=== PATIENT | male | born 1965 | race Caucasian/White ===

== ENCOUNTER 2018-12-10 21:17 | Inpatient (IN) | payer MEDICARE, MEDICAID ==
[~2018-12-10] VITALS: Ht 193 cm; Wt 99.8 kg
--- NOTE | 2018-12-10 21:34 | NUR ---
[facility] FOR ALCOHOL WITHDRAWAL, C/O LOWER BACK, BLE PAIN. PLACED ON 5150 TODAY FOR DTS, PLAN TO HANG HIMSELF. PT APPEARS AGITATED, AMBULATORY, VSS, RR EVEN AND UNLABORED ON RA. PLACED ON MONITOR, READY FOR EVAL.
--- NOTE | 2018-12-10 21:42 | NUR ---
PT REFUSES BLOOD DRAW. MD AWARE
--- NOTE | 2018-12-10 21:51 | NUR ---
ADMIT TO 214-B GPS
[2018-12-10] MEDS ORDERED: LORAZEPAM 1 MG TABLET ONE (21:56)
[2018-12-10] MEDS ORDERED: LORAZEPAM 1 MG TABLET PO ONE (22:00)
--- NOTE | 2018-12-10 23:12 | NUR ---
STEM ROLLER OR CRUSHER OPERATOR AT BEDSIDE FOR BLOOD DRAW.
[2018-12-10 23:22] LABS: BASOPHILS % (AUTO) 0.7 % (0.0-2.0); EOSINOPHILS % (AUTO) 2.4 % (0.0-6.0); HEMATOCRIT 40 % (39-51); HEMOGLOBIN 13.6 g/dL (13.5-17.5); LYMPHOCYTES # (AUTO) 2.9 /CMM (0.8-4.8); LYMPHOCYTES % (AUTO) 38.9 % (20.0-44.0); MEAN CORPUSCULAR HGB CONC 34 g/dl (31.0-36.0); MEAN CORPUSCULAR VOLUME 90 fL (80-96); MONOCYTES # (AUTO) 0.7 /CMM (0.1-1.30); NEUTROPHILS # (AUTO) 3.7 /CMM (1.8-8.9); PLATELET COUNT (AUTO) 370 /CMM (150-450); RED BLOOD CELL COUNT(AUTO) 4.45 MIL/uL (4.5-6.0); WHITE BLOOD COUNT (AUTO) 7.5 K/uL (4.3-11.0)
[2018-12-10 23:28] LABS: CALCIUM, SERUM 8.7 mg/dL (8.5-10.1); CARBON DIOXIDE 25 mmol/L (21-32); CHLORIDE 102 mmol/L (98-107); CREATININE 1.1 mg/dL (0.6-1.3); GLUCOSE 85 mg/dL (74-106); POTASSIUM 3.8 mmol/L (3.5-5.1); SODIUM SERUM 137 mmol/L (136-145); UREA NITROGEN, BLOOD 20 mg/dL (7-18)
[2018-12-10 23:41] LABS: ACETAMINOPHEN 2 ug/ml (10-30); ALANINE AMINOTRANSFERASE 19 U/L (12-78); ALBUMIN 3.5 g/dL (3.4-5.0); ALCOHOL, BLOOD < 3 mg/dL (0-0); ALKALINE PHOSPHATASE 61 U/L (46-116); ASPARTATE AMINOTRANSFERASE 14 U/L (15-37); BILIRUBIN,DIRECT 0.1 mg/dL (0.0-0.2); BILIRUBIN,TOTAL 0.4 mg/dL (0.2-1.0); TOTAL PROTEIN, SERUM 6.9 g/dL (6.4-8.2)
[2018-12-10 23:46] LABS: SALICYLATE 1.7 mg/dL (2.8-20.0)
[2018-12-10] MEDS ORDERED: TEMA15CA PO (23:55)
[2018-12-10] MEDS ORDERED: LORA1TAB PO (23:55)
[2018-12-10] MEDS ORDERED: LURA40TA PO (23:55)
[2018-12-10] MEDS ORDERED: TRAZ-182 PO (23:59)
[2018-12-10] MEDS ORDERED: ZIPR20CA2 PO (23:59)
--- NOTE | 2018-12-11 00:30 | NUR ---
ADMITTED THIS 53 YEARS OLD MALE FROM [facility] , PATIENT WAS PLACED ON 5150 HOLD DUE TO DANGERS TO SELF, PER HOLD PATIENT HAS A SUICIDAL IDEATIONS, PATIENT STATED "HE WANTS TO HANG HIM SELF " UPON FACE TO FACE ASSESSMENT PATIENT DENIES ANY SUICIDAL IDEATIONS PATIENT STATED "HE IS TIRED TO BE A HOME LESS THAT ALL" PATIENT IS UNDER CARE OF DR. HUSSEIN AND DR. BOO . PATIENT IS ALERT, ORIENTEDX3 AMBULATORY DENIES ANY PAIN OR DISCOMFORT AT THIS TIME, SKIN ASSESSMENT IS DONE, RIGHT FOOT SECOND TOE IS AMPUTATED, LEFT FOOT BIG TOE, AND SECOND TOE IS AMPUTATED. SKIN IS CLEAR NO OPEN WOUND OR PRESSURE ULCER NOTED, PIC IS TAKE AND PLACED IN THE CHART. PATIENT SIGN CONSENT PAPER, ADVISEMENT OF THE HOLD DISCUSSED WITH PATIENT WITH HIS RIGHTS. GUIDE TO PRESCRIPTION HANDBOOK PROVIDED TOGETHER WITH SO-CARE PACKET. Q 15 MINS CHECKS INITIATED CARE PLAN STARTED MED RECON NEEDS TO BE DONE MED IS ALREADY IN THE COMPUTER. WILL MONITOR THE PATIENT EVERY 15 MINS FOR SAFETY AND FALL AND ENDORSE TO THE ONCOMING NURSE TO CONTINUITY OF CARE.
--- NOTE | 2018-12-11 00:38 | NUR ---
PT TRANSFERED TO [facility] VIA WHEELCHAIR.
[2018-12-11] MEDS ORDERED: LORAZEPAM 0.5 MG TABLET PO PRN (01:00)
[2018-12-11] MEDS ORDERED: MAGNESIUM HYDROXIDE 30 ML UDC PO PRN (01:00)
[2018-12-11] MEDS ORDERED: MAG HYDROX/AL HYDROX/SIMETH 30 ML UDC PO PRN (01:00)
[2018-12-11 01:42] VITALS: BP 113/74
[2018-12-11 05:22] LABS: APPEARANCE,URINE CLEAR (CLEAR); BILIRUBIN,URINE NEGATIVE (NEGATIVE); BLOOD, URINE NEGATIVE Ery/uL (NEGATIVE); COLOR,URINE YELLOW (YELLOW); KETONES,URINE NEGATIVE (NEGATIVE); LEUKOCYTE ESTERASE ,URINE NEGATIVE (NEGATIVE); NITRITE, URINE NEGATIVE (NEGATIVE); PH,URINE 5.5 (5.0-8.0); PROTEIN,URINE NEGATIVE (NEGATIVE); UGLUCOSE NEGATIVE (NEGATIVE); UROBILINOGEN,URINE 0.2 EU/dL (0.2)
[2018-12-11 08:00] VITALS: BP 103/57
--- NOTE | 2018-12-11 08:36 | NUR ---
GPS/RN-NOTES RECEIVED T.O ORDER FROM DR. HUSSEIN TO CHANGE ATIVAN 0.5MG P.O Q4HR PRN TO 1MG P.O Q4HR PRN. NOTED AND CARRIED OUT.
[2018-12-11] MEDS: LORAZEPAM 1 MG TABLET PO PRN ×2 (08:52→16:56)
--- NOTE | 2018-12-11 08:55 | NUR ---
GPS/RN-NOTES NOTED PATIENT VERY ANGRY STATED" [facility], I NEED SOMETHING TO CALM ME DOWN". OFFERED ATIVAN AND AGREED, ATIVAN 1MG P.O GIVEN PRN ORDER. WILL CONT. MONITORING FOR SAFETY AND BEHAVIOR.
--- NOTE | 2018-12-11 10:00 | NUR ---
GPS/RN-NOTES PATIENT WATCHING TV IN THE DAY ROOM,CALM,NO ACUTE DISTRESS NOTED.
[2018-12-11] MEDS: ACETAMINOPHEN 325 MG TABLET PO PRN ×2 (12:18→12:56)
--- NOTE | 2018-12-11 13:00 | NUR ---
GPS/RN-NOTES PATIENT REQUESTING FOR TYLENOL FOR GENERAL BODY ACHE. TYLENOL 650MG P.O GIVEN ORDERED.
--- NOTE | 2018-12-11 15:15 | NUR ---
Group Note: SW prompted pt to attend group therapy on 12/11/18 at 2pm discussing patients right but the pt refused to attend. He stated that he would like to stay in his room.
[2018-12-11 16:00] VITALS: BP 127/74
--- NOTE | 2018-12-11 17:00 | NUR ---
GPS/RN-NOTES PATIENT REQUESTING ATIVAN,STATED" GIVE ME MY ATIVAN,I'M VERY ANXIOUS". ATIVAN 1MG P.O GIVEN PRN ORDER. WILL CONT. MONITORING FOR SAFETY AND BEHAVIOR.
--- NOTE | 2018-12-11 19:18 | NUR ---
GPS/RN-NOTES PATIENT LAYING IN BED AWAKE,ALERT,CALM NO ACUTE DISTRESS NOTED. ENDORSED TO INCOMING NURSE FOR CONTINUITY OF CARE.
[2018-12-11 20:00] VITALS: BP 108/75
[2018-12-11] MEDS: CARBAMAZEPINE 200 MG TABLET PO SCH (21:32)
[2018-12-11] MEDS: SERTRALINE HCL 50 MG TABLET PO SCH (21:33)
[2018-12-11] MEDS: QUETIAPINE FUMARATE 25 MG TABLET PO SCH (21:33)
[2018-12-12 08:00] VITALS: BP 114/56
[2018-12-12] MEDS: SERTRALINE HCL 50 MG TABLET PO SCH (08:32)
[2018-12-12] MEDS: CARBAMAZEPINE 200 MG TABLET PO SCH ×3 (08:32→16:33)
[2018-12-12] MEDS: QUETIAPINE FUMARATE 25 MG TABLET PO SCH ×2 (08:32→21:00)
--- NOTE | 2018-12-12 15:20 | NUR ---
Group Note: SW encouraged pt to attend group therapy on 12/12/18 at 2pm discussing depression but the pt was unable to attend. Pt is sleeping and not easily aroused.
[2018-12-12 16:00] VITALS: BP 116/67
[2018-12-12 20:00] VITALS: BP 102/65
--- NOTE | 2018-12-12 21:12 | NUR ---
GPS/TAG STRINGER NOTES: PT. REFUSED HS QUETIAPINE 50MG PO ORDERED. OFFERED 3X. EXPLAINED RISK AND BENEFITS. PT. STILL REFUSED.
[2018-12-13 08:00] VITALS: BP 117/64
[2018-12-13] MEDS: QUETIAPINE FUMARATE 25 MG TABLET PO SCH ×2 (08:38→09:00)
[2018-12-13] MEDS: CARBAMAZEPINE 200 MG TABLET PO SCH ×3 (08:38→16:31)
[2018-12-13] MEDS: SERTRALINE HCL 50 MG TABLET PO SCH (08:38)
[2018-12-13] MEDS: risperiDONE 0.25 MG TABLET PO SCH ×2 (10:36→16:31)
--- NOTE | 2018-12-13 12:13 | NUR ---
Group Note: SW encouraged pt to attend group therapy on 12/13/18 at 11:30 discussing social supports for when they are in the hospital and for once they are discharged but the pt refused to attend. He states that he is tired and would like to sleep.
--- NOTE | 2018-12-13 15:44 | NUR ---
Initial Discharge Plan: Pt is currently homeless and does not have family support. Pt stated that he would like to be placed in a longterm facility in the [place]. SW will work with the pt and the MD regarding appropriate discharge planning. SW will form a safe and proper discharge.
[2018-12-13 16:00] VITALS: BP 109/59
[2018-12-13] MEDS: ACETAMINOPHEN 325 MG TABLET PO PRN (16:32)
--- NOTE | 2018-12-13 19:26 | NUR ---
GPS RN NOTE, RECEIVED PATIENT AWAKE AND IN BED, NO S/S OR COMPLAINTS OF PAIN AT THIS TIME. PATIENT IS DISPLAYING NO S/S OF APPARENT DISTRESS AT THIS TIME. PATIENT BREATHING IS UNLABORED WITH EQUAL RISE AND FALL OF THE CHEST. PATIENT IS ALERT AND ORIENTED X 2 -3 ON ROOM AIR WITH A SPO2 OF 95 %. PATIENT IS MED COMPLAINT, DISORGANIZED, WITHDRAWN, ISOLATIVE, AND NEEDS REORIENTATION. PATIENT HAS THOUGHTS OF SUICIDE BUT HAS NO PLAN AT THIS TIME. PATIENT ASSISTED WITH TURNING AND REPOSITIONING Q2HR AND PRN FOR COMFORT AND CIRCULATION. PATIENT HAS NO NEEDS AT THIS TIME. PATIENT EDUCATED ON THE USE OF THE CALL DOCKERY. PATIENT BED SIDE RAILS ARE UP X 2 FOR SAFETY, BED IS LOCKED, AND LOW WILL CONTINUE TO MONITOR AND MAINTAIN SAFETY.
[2018-12-13] MEDS: LORAZEPAM 1 MG TABLET PO PRN (19:39)
--- NOTE | 2018-12-13 19:39 | NUR ---
GPS RN NOTE, PATIENT HAS A COMPLAINT OF FEELING ANXIOUS AND IS REQUESTING ATIVAN AT THIS TIME. PATIENT VITAL SIGNS ARE STABLE. GAVE ATIVAN 1 MG PO Q4HR PRN ORDERED. WILL REASSESS FOR ANXIETY AND I WILL CONTINUE TO MONITOR THIS PATIENT.
[2018-12-13 20:00] VITALS: BP 110/55
[2018-12-14 07:56] VITALS: BP 123/78
[2018-12-14] MEDS: CARBAMAZEPINE 200 MG TABLET PO SCH ×3 (08:14→16:41)
[2018-12-14] MEDS: SERTRALINE HCL 50 MG TABLET PO SCH (08:14)
[2018-12-14] MEDS: risperiDONE 0.25 MG TABLET PO SCH ×2 (08:14→16:41)
[2018-12-14] MEDS: ACETAMINOPHEN 325 MG TABLET PO PRN (11:51)
--- NOTE | 2018-12-14 11:52 | NUR ---
GPS/RN-NOTES PATIENT REQUESTING FOR TYLENOL FOR HEADACHE. TYLENOL 650MG P.O GIVEN ORDERED.
--- NOTE | 2018-12-14 12:30 | NUR ---
GPS/RN-NOTES PATIENT IN THE DAY ROOM WATCHING TV,NO ACUTE DISTRESS NOTED.
[2018-12-14] MEDS: LORAZEPAM 1 MG TABLET PO PRN ×2 (13:40→19:30)
--- NOTE | 2018-12-14 13:42 | NUR ---
GPS/RN-NOTES PATIENT REQUESTING ATIVAN,STATED" I NEED ATIVAN,I'M VERY ANXIOUS". ATIVAN 1MG P.O GIVEN PRN ORDER. WILL CONT. MONITORING FOR SAFETY AND BEHAVIOR.
--- NOTE | 2018-12-14 14:30 | NUR ---
GPS/RN-NOTES PATIENT SLEEPING IN BED, NO ACUTE DISTRESS NOTED.
[2018-12-14 16:00] VITALS: BP 103/57
--- NOTE | 2018-12-14 19:30 | NUR ---
GPS RN NOTE, RECEIVED PATIENT AWAKE AND IN BED, NO S/S OR COMPLAINTS OF PAIN AT THIS TIME. PATIENT IS DISPLAYING NO S/S OF APPARENT DISTRESS AT THIS TIME. PATIENT BREATHING IS UNLABORED WITH EQUAL RISE AND FALL OF THE CHEST. PATIENT IS ALERT AND ORIENTED X 2 -3 ON ROOM AIR WITH A SPO2 OF 97 %. PATIENT IS MED COMPLAINT, DISORGANIZED, WITHDRAWN, ISOLATIVE, AND NEEDS REORIENTATION. PATIENT HAS THOUGHTS OF SUICIDE BUT HAS NO PLAN AT THIS TIME. PATIENT ASSISTED WITH TURNING AND REPOSITIONING Q2HR AND PRN FOR COMFORT AND CIRCULATION. PATIENT HAS NO NEEDS AT THIS TIME. PATIENT EDUCATED ON THE USE OF THE CALL DOCKERY. PATIENT BED SIDE RAILS ARE UP X 2 FOR SAFETY, BED IS LOCKED, AND LOW WILL CONTINUE TO MONITOR AND MAINTAIN SAFETY.
[2018-12-14 20:00] VITALS: BP 109/62
[2018-12-15 08:00] VITALS: BP 119/69
[2018-12-15] MEDS: risperiDONE 0.25 MG TABLET PO SCH ×2 (09:07→17:29)
[2018-12-15] MEDS: CARBAMAZEPINE 200 MG TABLET PO SCH ×3 (09:07→17:29)
[2018-12-15] MEDS: SERTRALINE HCL 50 MG TABLET PO SCH (09:07)
--- NOTE | 2018-12-15 13:57 | NUR ---
PATIENT C/O ANXIETY ,MEDICATED WITH ATIVAN 1MG X1 FOR ANXIETY WILL CONTINUE TO MONITOR .
[2018-12-15] MEDS: LORAZEPAM 1 MG TABLET PO PRN (14:01)
[2018-12-15 16:02] VITALS: BP 121/67
[2018-12-15] MEDS: ACETAMINOPHEN 325 MG TABLET PO PRN (17:29)
--- NOTE | 2018-12-15 17:29 | NUR ---
RN note:patient c/o generalize pain medicated with Tylenol 650mg ,will continue to monitor .
--- NOTE | 2018-12-15 19:31 | NUR ---
RESTING IN BED, AWAKE, ALERT, ORIENTED X3, CALM, QUIET. EASILY GET ANGRY BUT NOT NOW, COMFORTABLE IN BED, DENIES ANY PLAN TO HURT HIMSELF, COOPERATIVE, INTERACTS WHEN ENGAGED. NO ACUTE DISTRESS NOTED, STABLE. WILL CONTINUE TO MONITOR Q 15 MINS. FOR SAFETY AND BEHAVIOR.
[2018-12-15 19:48] VITALS: BP_SYST 111; BP_SYST 122; BP_DIAS 53; BP_DIAS 75
[2018-12-16 08:00] VITALS: BP 101/57
[2018-12-16] MEDS: SERTRALINE HCL 50 MG TABLET PO SCH (08:20)
[2018-12-16] MEDS: CARBAMAZEPINE 200 MG TABLET PO SCH ×3 (08:21→16:19)
[2018-12-16] MEDS: risperiDONE 0.25 MG TABLET PO SCH ×2 (08:21→16:19)
--- NOTE | 2018-12-16 08:37 | NUR ---
RN OPENING NOTES RECEIVED PATIENT RESTING IN BED. PER PATIENT HE IS "DEPRESSED, HE LOST HIS SISTER A FEW MONTHS AGO AND IS UNEMPLOYED". ENCOURAGED PATIENT TO TALK ABOUT FEELINGS. PT MEDICATION COMPLIANT. CALM AND COOPERATIVE. NO SI/HI AT THIS TIME. NO PAIN, SOB OR DISTRESS AT THIS TIME. WILL CONTINUE TO MONITOR Q15 MIN FOR SAFETY.
[2018-12-16] MEDS: ACETAMINOPHEN 325 MG TABLET PO PRN (10:06)
--- NOTE | 2018-12-16 10:10 | NUR ---
RN NOTES PT REQUESTED PRN TYLENOL 650MG FOR HEADACHE. ADMINISTERED AND WILL CONTINUE TO MONITOR.
--- NOTE | 2018-12-16 11:11 | NUR ---
Group Note: Pt attended group therapy on 12/16/18 at 9:30 discussing the topic of anger management for when they are in the hospital and for once they are discharged S: Pt stated, �Getting stuck in a traffic jam would really get me upset. I would have road rage but now I just try to breath and calm myself down. Its not easy, but I try.� O: Pt was present during the group session and was engaged. Pt appeared alert and presented with a calm affect. Pt maintained appropriate eye contact and had a strong tone of voice. A: Pt expressed that when he gets angry it�s not easy to remember to get a hold of his emotions, but he tries to focus on his breathing to calm himself down and descale the situation that is making him upset. Pt will work on practicing other forms of stress management in order to manage his anger as well, including meditation and grounding techniques. P: Pt will continue milieu treatment and medication stabilization.
--- NOTE | 2018-12-16 11:47 | NUR ---
PETRA faxed a referral to [facility] with attention to Diane to the fax number: [phone].
[2018-12-16] MEDS: LORAZEPAM 1 MG TABLET PO PRN (15:27)
--- NOTE | 2018-12-16 15:30 | NUR ---
RN NOTES PT REQUESTED PRN ATIVAN 1MG FOR ANXIETY. ADMINISTERED AND WILL CONTINUE TO MONITOR.
[2018-12-16 16:00] VITALS: BP 107/74
[2018-12-16 19:29] VITALS: BP 100/55
[2018-12-16] MEDS: TEMAZEPAM 7.5 MG CAPSULE PO PRN (22:04)
[2018-12-17 08:00] VITALS: BP 114/75
[2018-12-17] MEDS: ACETAMINOPHEN 325 MG TABLET PO PRN (08:18)
[2018-12-17] MEDS: risperiDONE 0.25 MG TABLET PO SCH ×2 (08:18→16:34)
[2018-12-17] MEDS: CARBAMAZEPINE 200 MG TABLET PO SCH ×3 (08:18→16:34)
[2018-12-17] MEDS: SERTRALINE HCL 50 MG TABLET PO SCH (08:18)
[2018-12-17] MEDS: LORAZEPAM 1 MG TABLET PO PRN ×2 (08:36→14:23)
--- NOTE | 2018-12-17 08:36 | NUR ---
NURSING NOTE: PT IS IN HIS ROOM, SITING ON THE SIDE OF HIS BED, STATING "I'M GETTING VERY ANXIOUS, CAN I HAVE MY ATIVAN", ADMINISTERED ATIVAN 1MG PO PER MD ORDER. VS STABLE, WILL CONTINUE TO MONITOR FOR SAFETY AND BEHAVIOR.
--- NOTE | 2018-12-17 08:38 | NUR ---
Bindu ([phone]) from [facility] contacted the SW and informed her that the pt was not accepted to their facility due to his alcoholism and his young age.
--- NOTE | 2018-12-17 08:43 | NUR ---
PETRA faxed a referral to [facility] with attention to Dee to the fax number: [phone].
--- NOTE | 2018-12-17 08:50 | NUR ---
PETRA faxed a referral to [facility] with attention to Chela to the fax number: [phone].
--- NOTE | 2018-12-17 10:57 | NUR ---
Dee ([phone]) from [facility] called the SW and informed her that she has accepted the pt but needs the nurse to accept as well so she will call the SW back.
--- NOTE | 2018-12-17 11:50 | NUR ---
Farnaz ([phone]) from [facility] called the SW and stated that the pt was accepted to their facility.
--- NOTE | 2018-12-17 14:23 | NUR ---
NURSING NOTE: PT IN THE HALLWAY, PACING UP AND DOWN, REQUESTING ATIVAN FOR INCREASED ANXIETY. ADMINISTERED ATIVAN 1MG PO PER MD ORDER. VS STABLE. WILL CONTINUE TO MONITOR FOR SAFETY.
--- NOTE | 2018-12-17 15:19 | NUR ---
GROUP NOTE: Pt was present in group on 12/17/18 at 1400 but was irritable and stated he did not want to talk as he was upset that he had been accepted to a SNF in [place], stating, "I [facility]'t [facility] to [facility], I got away from there and moved to [place] I don't want to go back there find a different place." Pt then got up and walked away and went to his room.
[2018-12-17 16:00] VITALS: BP 133/55
[2018-12-17 20:19] VITALS: BP 100/63
[2018-12-17] MEDS ORDERED: TRAZODONE 50 MG TABLET PO SCH (22:00)
[2018-12-18] MEDS: TEMAZEPAM 7.5 MG CAPSULE PO PRN (02:42)
[2018-12-18 08:00] VITALS: BP 110/55
[2018-12-18] MEDS: CARBAMAZEPINE 200 MG TABLET PO SCH ×3 (08:32→16:25)
[2018-12-18] MEDS: SERTRALINE HCL 50 MG TABLET PO SCH (08:33)
[2018-12-18] MEDS: risperiDONE 0.25 MG TABLET PO SCH ×2 (08:33→16:25)
[2018-12-18] MEDS: LORAZEPAM 1 MG TABLET PO PRN ×2 (08:35→14:15)
--- NOTE | 2018-12-18 08:35 | NUR ---
PETRA faxed a referral to [facility] with attention to Gaye to the fax number: [phone].
--- NOTE | 2018-12-18 10:05 | NUR ---
Alphonso ([phone]) from [facility] contacted the and stated that the pt was accepted to their facility at the time of discharge.
[2018-12-18] MEDS: ACETAMINOPHEN 325 MG TABLET PO PRN (11:00)
[2018-12-18 16:00] VITALS: BP 112/77
[2018-12-18 20:16] VITALS: BP 100/51
[2018-12-18] MEDS: TRAZODONE 50 MG TABLET PO SCH (21:20)
[2018-12-19 08:00] VITALS: BP 110/71
--- NOTE | 2018-12-19 08:50 | NUR ---
Patient request for assist with gown tie and norco for pain in legs and back. Denilson Goff RN
[2018-12-19] MEDS: SERTRALINE HCL 50 MG TABLET PO SCH (09:00)
[2018-12-19] MEDS: HYDROCODONE/APAP 5/325MG 1 EACH TABLET PO PRN ×2 (09:00→15:28)
[2018-12-19] MEDS: risperiDONE 0.25 MG TABLET PO SCH ×2 (09:00→16:28)
[2018-12-19] MEDS: CARBAMAZEPINE 200 MG TABLET PO SCH ×3 (09:00→16:28)
--- NOTE | 2018-12-19 10:20 | NUR ---
SW conducted a substance abuse intervention with the pt regarding his substance use history and alcohol usage.
[2018-12-19] MEDS: LORAZEPAM 1 MG TABLET PO PRN ×2 (10:50→16:49)
--- NOTE | 2018-12-19 10:52 | NUR ---
Patient says he is anxious. Request for ativan. Patient also says he wants to know the time interval for ativan. Made aware of every 6 hours as needed. Denilson Goff RN
--- NOTE | 2018-12-19 14:22 | NUR ---
SW spoke to the pt regarding the three accepting facilities and stated that the pt can choose the facility that he is the most comfortable with based on location since that appears to be important to the pt. He stated that he would like to be discharged to [facility].
[2018-12-19 16:00] VITALS: BP 117/65
[2018-12-19 20:00] VITALS: BP 124/68
[2018-12-19] MEDS: TRAZODONE 50 MG TABLET PO SCH (21:15)
[2018-12-20 08:00] VITALS: BP 124/74
[2018-12-20] MEDS: risperiDONE 0.25 MG TABLET PO SCH ×2 (08:15→17:38)
[2018-12-20] MEDS: CARBAMAZEPINE 200 MG TABLET PO SCH ×3 (08:15→17:38)
[2018-12-20] MEDS: HYDROCODONE/APAP 5/325MG 1 EACH TABLET PO PRN ×2 (08:15→17:38)
[2018-12-20] MEDS: SERTRALINE HCL 50 MG TABLET PO SCH (08:15)
[2018-12-20] MEDS: LORAZEPAM 1 MG TABLET PO PRN (09:49)
--- NOTE | 2018-12-20 10:22 | NUR ---
SW spoke to the pt regarding his discharge plan. SW had informed him that if he wanted to attend a [facility] facility it would have to be from the three accepting facilities that the SW provided to him. He stated that he did not want to be in a SNF because he has been in one before and he did not have a good experience. Pt stated that he wants to be able to leave the facility unattended and he is aware that if he gets discharged to the streets he would have to provide his own fci and food. Pt stated that he would still like to refuse a SNF discharge.
--- NOTE | 2018-12-20 11:12 | NUR ---
SW contacted the facility and received information regarding their smoking policies and then informed the pt. He stated that he would think about it over the weekend because the discharge got pushed to Sunday. PETRA emphasized that he needs to have a decision made by then.
--- NOTE | 2018-12-20 11:56 | NUR ---
GROUP NOTE: Pt attended group on 12/20/18 at 1000 to discuss the topic of discharge planning but did not participate, pt was sitting away from the [place] and stated, "I don't want to say anything."
[2018-12-20 16:13] VITALS: BP 119/80
[2018-12-20 20:00] VITALS: BP 122/73
[2018-12-20] MEDS: TRAZODONE 50 MG TABLET PO SCH (21:07)
[2018-12-21] MEDS: SERTRALINE HCL 50 MG TABLET PO SCH (08:08)
[2018-12-21] MEDS: risperiDONE 0.25 MG TABLET PO SCH ×2 (08:08→16:05)
[2018-12-21] MEDS: CARBAMAZEPINE 200 MG TABLET PO SCH ×3 (08:08→16:05)
[2018-12-21] MEDS: HYDROCODONE/APAP 5/325MG 1 EACH TABLET PO PRN ×2 (08:29→17:44)
--- NOTE | 2018-12-21 08:33 | NUR ---
GPS/RN-NOTES PATIENT REQUESTING NORCO FOR 8 LOWER BACK PAIN. NORCO 5/325MG 1 TAB. P.O GIVEN PRN ORDER. WILL CONT. MONITORING FOR SAFETY.
[2018-12-21] MEDS: LORAZEPAM 1 MG TABLET PO PRN (15:17)
--- NOTE | 2018-12-21 15:19 | NUR ---
GPS/RN-NOTES PATIENT REQUESTING ATIVAN,STATED" I NEED ATIVAN,I'M ANXIOUS". ATIVAN 1MG P.O GIVEN PRN ORDER. WILL CONT. MONITORING FOR SAFETY AND BEHAVIOR.
[2018-12-21 16:00] VITALS: BP 122/73
--- NOTE | 2018-12-21 16:20 | NUR ---
GPS/RN-NOTES PATIENT READING MAGAZINE IN THE ROOM,CALM,NO ACUTE DISTRESS NOTED.
--- NOTE | 2018-12-21 17:44 | NUR ---
GPS/RN-NOTES PATIENT STATED " I NEED NORCO FOR MY 810 LOWER BACK PAIN". NORCO 5/325MG 1 TAB. P.O GIVEN PRN ORDER. WILL CONT. MONITORING FOR SAFETY.
[2018-12-21 20:00] VITALS: BP 111/64
[2018-12-21] MEDS: TRAZODONE 50 MG TABLET PO SCH (21:11)
[2018-12-22] MEDS: HYDROCODONE/APAP 5/325MG 1 EACH TABLET PO PRN ×2 (06:24→13:57)
[2018-12-22 07:03] LABS: CALCIUM, SERUM 8.7 mg/dL (8.5-10.1); CREATININE 0.8 mg/dL (0.6-1.3); POTASSIUM 4.2 mmol/L (3.5-5.1)
[2018-12-22 07:21] LABS: BASOPHILS % (AUTO) 0.3 % (0.0-2.0); EOSINOPHILS % (AUTO) 1.5 % (0.0-6.0); HEMATOCRIT 42 % (39-51); HEMOGLOBIN 14.2 g/dL (13.5-17.5); LYMPHOCYTES # (AUTO) 2.3 /CMM (0.8-4.8); MEAN CORPUSCULAR HGB CONC 34 g/dl (31.0-36.0); MEAN CORPUSCULAR VOLUME 90 fL (80-96); MONOCYTES # (AUTO) 0.5 /CMM (0.1-1.30); MONOCYTES % (AUTO) 8.5 % (2.0-12.0); NEUTROPHILS # (AUTO) 2.8 /CMM (1.8-8.9); NEUTROPHILS % (AUTO) 49.7 % (43.0-81.0); PLATELET COUNT (AUTO) 321 /CMM (150-450); RED BLOOD CELL COUNT(AUTO) 4.71 MIL/uL (4.5-6.0); WHITE BLOOD COUNT (AUTO) 5.7 K/uL (4.3-11.0)
[2018-12-22 08:00] VITALS: BP 100/61
[2018-12-22] MEDS: CARBAMAZEPINE 200 MG TABLET PO SCH ×3 (09:14→16:23)
[2018-12-22] MEDS: risperiDONE 0.25 MG TABLET PO SCH ×2 (09:14→16:23)
[2018-12-22] MEDS: SERTRALINE HCL 50 MG TABLET PO SCH (09:14)
[2018-12-22] MEDS: LORAZEPAM 1 MG TABLET PO PRN (09:36)
--- NOTE | 2018-12-22 09:37 | NUR ---
RN NOTE:Patient c/o anxiety medicated with ativan 1mg po x1 .will continue to monitor for anxiety .
--- NOTE | 2018-12-22 13:58 | NUR ---
RN NOTE:Patient c/o pain in back medicated with Douglass 5mg/325mg po x1 .will continue to monitor for pain .
[2018-12-22 16:00] VITALS: BP 126/74
[2018-12-22 19:26] VITALS: BP 122/73
[2018-12-22] MEDS: TRAZODONE 50 MG TABLET PO SCH (21:04)
--- NOTE | 2018-12-22 21:25 | NUR ---
GPS RN NOTES: PATIENT REFUSED TO HAVE HIS WEEKLY ASSESSMENT PICTURES DONE. PER PATIENT. "DON'T WORRY, I AM FINE". PATIENT ALSO EXPRESSED HIS DISAPPOINTMENT REGARDING THE DOSE OF HIS TRAZODONE MEDICATIONS. PER PATIENT HE REQUESTED FOR THE DOSE TO BE INCREASED BUT DOCTOR DID NOT ORDER IT. WILL FOLLOW IN THE MORNING. WILL MONITOR PATIENT'S SLEEP PATTERN.
[2018-12-23] MEDS: HYDROCODONE/APAP 5/325MG 1 EACH TABLET PO PRN (05:19)
[2018-12-23 08:00] VITALS: BP 110/61
[2018-12-23] MEDS: risperiDONE 0.25 MG TABLET PO SCH (09:21)
[2018-12-23] MEDS: CARBAMAZEPINE 200 MG TABLET PO SCH (09:21)
[2018-12-23] MEDS: SERTRALINE HCL 50 MG TABLET PO SCH (09:21)
--- NOTE | 2018-12-23 10:37 | NUR ---
PETRA faxed updated clinical to [facility] to the fax number: [phone].
--- NOTE | 2018-12-23 12:00 | NUR ---
Discharge Note: Pt was discharged to [facility] ([facility]) located at [address] [place] [address]; ([phone]). Pt was transported via [facility] at 11AM. Upon discharge, the pt appeared to be in a euthymic mood and presented with a calm affect. Pt denied both suicidal and homicidal ideation as well as auditory and visual hallucinations. Pt will continue to address his substance use with his treatment team and was provided with homeless and substance abuse referrals. Pt will be under the care of his psychiatrist, Dr. Castellon, located at [address] [place] [address]; . Pt will also be under the care of his food service representative, Dr. Drew, located at [address] [place] [address]; .
--- NOTE | 2018-12-23 12:15 | NUR ---
RN NOTE:PATIENT ALERT ,VERBALLY RESPONSIVE ,MED COMPLIANT ,DENIES SI/HI/AVH ,VS STABLE , CALLED WITH DISCHARGE ORDERS AND SEEN BY WITH DISCHARGE ORDERS .ALL DISCHARGE INSTRUCTION GIVEN TO PATIENT ABLE TO VERBALIZE UNDERSTANDING .ALL BELONGINGS RETURNED TO PATIENT .PATIENT DISCHARGED AT 1215 WITH AMBULANCE .REPORT GIVEN TO SERVICER NURSE IN [facility] .
--- NOTE | 2019-01-03 11:38 | NUR ---
15 Day Substance Abuse Follow Up: Pt is exempt from the substance abuse follow up due to his discharge to a [facility] facility called [facility].
== END 2018-12-23 12:15 | DRG 885 ==
LOC: ER 21:18 → GPS 22:07
PROVIDERS: ADMIT Psychiatry & Neurology Psychiatry; ATTEND Registered Nurse
DX: F31.5 Bipolar disorder, current episode depressed, severe, with psychotic features (principal); R45.851 Suicidal ideations; D68.59 Other primary thrombophilia; Z86.73 Personal history of transient ischemic attack (TIA), and cerebral infarction without residual deficits; E66.9 Obesity, unspecified; G62.9 Polyneuropathy, unspecified; I73.9 Peripheral vascular disease, unspecified; Z68.26 Body mass index [BMI] 26.0-26.9, adult
CPT/HCPCS: 36415; 80048-TC; 80076-TC; 80305; 81000-TC; 85025-TC; 87081-TC; G0480